=== PATIENT | male | born 2000 | race Caucasian/White ===

== ENCOUNTER 2019-05-03 21:05 | Emergency (ER) | payer SELFPAY ==
--- NOTE | 2019-05-03 21:38 | PHYS DOC ---
Adult General Chief Complaint Chief Complaint: SEXUALLY TRANSMITTED DISEASE HPI HPI Patient is a 19-year-old male who presents with report that he thinks that he has an STD. Patient states that his ex-girlfriend had cheated on him and 4 days ago he started noticing penile discharge. He does report to painful urination. He denies any fever or abdominal pain. He denies any testicular pain.[] Review of Systems Review of Systems Constitutional: Denies fever or chills [] Respiratory: Denies cough or shortness of breath [] Cardiovascular: No additional information not addressed in HPI [] GI: Denies abdominal pain, nausea, vomiting or diarrhea [] : Complains of dysuria and penile discharge[] Musculoskeletal: Denies back pain or joint pain [] Integument: Denies rash or skin lesions [] Physical Exam Physical Exam Constitutional: Well developed, well nourished, no acute distress, non-toxic appearance. [] Neck: Normal range of motion, no tenderness, supple, no stridor. [] Cardiovascular:Heart rate regular rhythm, no murmur [] Lungs & Thorax: Bilateral breath sounds clear to auscultation [] Abdomen: Bowel sounds normal, soft, no tenderness. [] : Examination of male genitalia demonstrates findings of purulent penile discharge. No testicular mass or tenderness. [] EKG EKG [] Radiology/Procedures Radiology/Procedures [] Course & Med Decision Making Course & Med Decision Making Pertinent Labs and Imaging studies reviewed. (See chart for details) An MSE was completed on this patient and registration presented to seek payment. Patient elected to leave with outpatient follow-up. Dragon Disclaimer Dragon Disclaimer This electronic medical record was generated, in whole or in part, using a voice recognition dictation system. Departure Departure Impression: Primary Impression: Sexually transmitted disease (STD) Disposition: 01 HOME, SELF-CARE (Patient left without treatment after discussion with registration) Condition: STABLE Referrals: NO PCP (PCP) Additional Instructions: Patient encouraged to follow-up with outpatient free clinic or health department for further treatment. LISANDRO VALLES Jr. DO May 03, 2019 21:38
== END 2019-05-03 21:35 | disposition home or self-care (01) ==
LOC: ER 21:05
DX: A64 Unspecified sexually transmitted disease (principal); R30.9 Painful micturition, unspecified
CPT/HCPCS: 99281

== ENCOUNTER 2019-05-13 18:01 | Emergency (ER) | payer SELFPAY ==
[~2019-05-13] VITALS: Ht 175.3 cm; Wt 61.2 kg
[2019-05-13 18:21] VITALS: BP 143/93
[2019-05-13 18:48] LABS: BILIRUBIN,URINE NEGATIVE (NEG); CLARITY,URINE CLOUDY; COLOR,URINE YELLOW; NITRITE,URINE NEGATIVE (NEG); PH,URINE 6.5; PROTEIN,URINE 30 mg/dL (NEG-TRACE)
--- NOTE | 2019-05-13 18:51 | PHYS DOC ---
Past Medical History Past Medical History: No Pertinent History (OPAL FRANCO APRN) Past Surgical History: Other Additional Past Surgical Histo: mouth sx from fall as a child (OPAL FRANCO APRN) Alcohol Use: Occasionally Drug Use: Marijuana (OPAL FRANCO APRN) Attending Signature I have participated in the care of this patient and I have reviewed and agree with all pertinent clinical information above including history, exam, and recommendations. (MALATHI GARDNER MD) Adult General Chief Complaint Chief Complaint: SEXUALLY TRANSMITTED DISEASE HPI HPI Patient is a 19 year old male who presents to the emergency Department with concerns of sexually transmitted infection. Patient reports pain with urination and abnormal white to yellow penile discharge for the last week. Patient denies any abdominal pain, nausea, vomiting, diarrhea, difficulty urinating, hematuria, low back pain, fever, shortness breath, wheezing, or rash. Patient states that he has had a dry for several weeks, he states those symptoms are improving. Patient reports he is a smoker and smokes about half a pack to a pack of cigarettes daily. He currently denies any pain unless he is urinating and it is a 10 out of 10 on the pain scale. All other ROS is neg unless otherwise noted in HPI. (OPAL FRANCO APRN) Review of Systems Review of Systems See Above (OPAL FRANCO APRN) Current Medications Current Medications Current Medications Medications (Trade) Dose Ordered Sig/Loki Start Time Stop Time Status Last Admin Dose Admin Azithromycin (Zithromax) 1,000 mg 1X ONCE 05/13/19 19:00 05/13/19 19:01 DC 05/13/19 18:48 1,000 MG Ceftriaxone Sodium (Rocephin Im) 250 mg 1X ONCE 05/13/19 19:00 05/13/19 19:01 DC 05/13/19 18:48 250 MG (MALATHI GARDNER MD) Allergies Allergies Allergies Coded Allergies Type Severity Reaction Last Updated Verified No Known Drug Allergies 05/13/19 No (MALATHI GARDNER MD) Physical Exam Physical Exam Constitutional: Well developed, well nourished, no acute distress, non-toxic appearance. [] HENT: Normocephalic, atraumatic, bilateral external ears normal, oropharynx moist, no oral exudates, nose normal. [] Eyes: PERRLA, EOMI, conjunctiva normal, no discharge. [] Neck: Normal range of motion, no stridor. [] Cardiovascular:Heart rate regular rhythm, no murmur [] Lungs & Thorax: Bilateral breath sounds clear to auscultation [] Abdomen: soft, no tenderness Skin: Warm, dry, no erythema, no rash. [] Back: No CVA tenderness. [] Extremities: No cyanosis, ROM intact Neurologic: Alert and oriented X 3, no focal deficits noted. [] Psychologic: Affect normal, judgement normal, mood normal. [] (OPAL FRANCO APRN) Current Patient Data Vital Signs Vital Signs Date Time Temp Pulse Resp B/P (MAP) Pulse Ox O2 Delivery O2 Flow Rate FiO2 05/13/19 18:21 98.4 118 16 143/93 (110) 100 Room Air 98.4 (MALATHI GARDNER MD) Lab Values Laboratory Tests Test 05/13/19 18:33 Urine Collection Type Unknown Urine Color Yellow Urine Clarity Cloudy Urine pH 6.5 Urine Specific [place] 1.020 Urine Protein 30 mg/dL (NEG-TRACE) Urine Glucose (UA) Negative mg/dL (NEG) Urine Ketones (Stick) Negative mg/dL (NEG) Urine Blood Moderate (NEG) Urine Nitrite Negative (NEG) Urine Bilirubin Negative (NEG) Urine Urobilinogen Dipstick 1.0 mg/dL (0.2 mg/dL) Urine Leukocyte Esterase Large (NEG) Urine RBC 0 /HPF (0-2) Urine WBC Tntc /HPF (0-4) Urine Bacteria 0 /HPF (0-FEW) Urine Mucus Mod /LPF Urine Sperm Present /HPF (MALATHI GARDNER MD) Lab Values Laboratory Tests Test 05/13/19 18:33 Urine Collection Type Unknown Urine Color Yellow Urine Clarity Cloudy Urine pH 6.5 Urine Specific [place] 1.020 Urine Protein 30 mg/dL (NEG-TRACE) Urine Glucose (UA) Negative mg/dL (NEG) Urine Ketones (Stick) Negative mg/dL (NEG) Urine Blood Moderate (NEG) Urine Nitrite Negative (NEG) Urine Bilirubin Negative (NEG) Urine Urobilinogen Dipstick 1.0 mg/dL (0.2 mg/dL) Urine Leukocyte Esterase Large (NEG) Urine RBC 0 /HPF (0-2) Urine WBC Tntc /HPF (0-4) Urine Bacteria 0 /HPF (0-FEW) Urine Mucus Mod /LPF Urine Sperm Present /HPF (OPAL FRANCO APRN) EKG EKG [] (OPAL FRANCO APRN) Radiology/Procedures Radiology/Procedures [] (OPAL FRANCO APRN) Course & Med Decision Making Course & Med Decision Making Pertinent Labs and Imaging studies reviewed. (See chart for details) Diagnosis contact with a suspected sexually transmitted infection Patient is a 19-year-old male who presented to the emergency room with complaints of abnormal penile discharge and dysuria for the last week. He reported concerns of a sexually transmitted infection. Patient was treated prophylactically with 250 mg of IM Rocephin, and 1 g of PO Zithromax. Patient was instructed to avoid having intercourse until the results of gonorrhea and chlamydia testing are available, patient was notified that these results would not be available for 48 hours. If one or both of these tests is positive, patient needs to refrain from intercourse for approximately 1 week following the treatment of any current partners. Patient verbalized an understanding of home care, medications, follow-up, and return to ED instructions and was in agreement with the plan of care. [] (OPAL FRANCO APRN) Dragon Disclaimer Dragon Disclaimer This electronic medical record was generated, in whole or in part, using a voice recognition dictation system. (OPAL FRANCO APRN) Departure Departure Impression: Primary Impression: Contact with and (suspected) exposure to infections with a predominantly sexual mode of transmission Additional Impressions: Dysuria Abnormal penile discharge Disposition: 01 HOME, SELF-CARE Condition: STABLE Referrals: NO PCP (PCP) Patient Instructions: Sexually Transmitted Disease, [id number] Additional Instructions: Recommend that you go to your local health department for comprehensive sexually transmitted disease testing. You have been treated for a suspected gonorrhea and chlamydia. Avoid having intercourse until the results of gonorrhea and chlamydia testing are available, these results will not be available for 48 hours. If one or both of these tests is positive, you need to refrain from intercourse for approximately 1 week following the treatment of any current partners. Follow-up with your primary care doctor if symptoms persist, return to ER symptoms worsen. Problem Qualifiers OPAL FRANCO APRN May 13, 2019 18:51 MALATHI GARDNER MD May 14, 2019 18:13
[2019-05-13] MEDS ORDERED: AZITHROMYCIN 250 MG TABLET. PO ONE (19:00)
[2019-05-13] MEDS ORDERED: cefTRIAXone IM 250 MG VIAL IM ONE (19:00)
[2019-05-13 19:03] LABS: BACTERIA,URINE 0 /HPF (0-FEW); RBC,URINE 0 /HPF (0-2); SPERM,URINE PRESENT /HPF; WBC,URINE TNTC /HPF (0-4)
== END 2019-05-13 19:26 | disposition home or self-care (01) ==
LOC: ER 18:01
DX: R30.0 Dysuria (principal); Z20.2 Contact with and (suspected) exposure to infections with a predominantly sexual mode of transmission; R36.9 Urethral discharge, unspecified; F17.210 Nicotine dependence, cigarettes, uncomplicated; F12.90 Cannabis use, unspecified, uncomplicated
CPT/HCPCS: 81001; 87086; 87491; 87591; 96372; 99284; J0696; Q0144

== ENCOUNTER 2020-03-12 20:38 | Emergency (ER) | payer SELFPAY ==
[~2020-03-12] VITALS: Ht 175.3 cm; Wt 61.0 kg
[2020-03-12 20:50] VITALS: BP 127/77
[2020-03-12] MEDS ORDERED: cefTRIAXone IM 250 MG VIAL IM ONE (21:15)
[2020-03-12] MEDS ORDERED: AZITHROMYCIN 250 MG TABLET. PO ONE (21:15)
--- NOTE | 2020-03-12 21:30 | PHYS DOC ---
Past Medical History Past Medical History: No Pertinent History Past Surgical History: Other Additional Past Surgical Histo: mouth sx from fall as a child Smoking Status: Current Every Day Smoker Alcohol Use: Occasionally Drug Use: Marijuana General Adult EDM: Chief Complaint: SEXUALLY TRANSMITTED DISEASE HPI: HPI: Patient is a 20 year old male who presents to the emergency department with complaints of irregular penile discharge and pain with urination for the last week. He reports that he thinks he might have a sexually transmitted infection. The patient denies any fever, abdominal pain, testicular pain, nausea, vomiting, diarrhea, or rash. He denies any hematuria, increased urinary frequency, or incontinence. He currently denies any pain. Review of Systems: Review of Systems: Complete ROS is negative unless otherwise stated in the HPI. Heart Score: Risk Factors: Risk Factors: DM, Current or recent (<one month) smoker, HTN, HLP, family history of CAD, obesity. Risk Scores: Score 0 - 3: 2.5% MACE over next 6 weeks - Discharge Home Score 4 - 6: 20.3% MACE over next 6 weeks - Admit for Clinical Observation Score 7 - 10: 72.7% MACE over next 6 weeks - Early Invasive Strategies Current Medications: Current Medications Medications (Trade) Dose Ordered Sig/Loki Start Time Stop Time Status Last Admin Dose Admin Azithromycin (Zithromax) 1,000 mg 1X ONCE 03/12/20 21:15 03/12/20 21:16 DC 03/12/20 21:25 1,000 MG Ceftriaxone Sodium (Rocephin Im) 250 mg 1X ONCE 03/12/20 21:15 03/12/20 21:16 DC 03/12/20 21:25 250 MG Allergies: Allergies: Allergies Coded Allergies Type Severity Reaction Last Updated Verified No Known Drug Allergies 05/13/19 No Physical Exam: PE: Constitutional: Well developed, well nourished, no acute distress, non-toxic appearance. [] HENT: Normocephalic, atraumatic, bilateral external ears normal, nose normal. [] Eyes: PERRLA, EOMI, conjunctiva normal, no discharge. [] Neck: Normal range of motion, no stridor. [] Cardiovascular:Heart rate regular rhythm Lungs & Thorax: Respirations even and unlabored, no retractions, no respiratory distress Skin: Warm, dry, no erythema, no rash. [] Extremities: No cyanosis, ROM intact, no edema. [] Neurologic: Alert and oriented X 3, no focal deficits noted. [] Psychologic: Affect normal, judgement normal, mood normal. [] Current Patient Data: Vital Signs: Vital Signs Date Time Temp Pulse Resp B/P (MAP) Pulse Ox O2 Delivery O2 Flow Rate FiO2 03/12/20 20:50 98.2 66 15 127/77 (94) 100 Room Air 98.2 EKG: EKG: [] Radiology/Procedures: Radiology/Procedures: [] Course & Med Decision Making: Course & Med Decision Making Pertinent Labs and Imaging studies reviewed. (See chart for details) Patient was treated prophylactically with 250 mg of IM Rocephin, and 1 g of PO Zithromax. Patient was instructed to avoid having intercourse until the results of gonorrhea and chlamydia testing are available, patient was notified that these results would not be available for 48 hours. If one or both of these tests is positive, patient needs to refrain from intercourse for approximately 1 week following the treatment of any current partners. [] Dragon Disclaimer: Dragon Disclaimer: This electronic medical record was generated, in whole or in part, using a voice recognition dictation system. Departure Departure Impression: Primary Impression: Contact with and (suspected) exposure to infections with a predominantly sexual mode of transmission Additional Impression: Abnormal penile discharge Disposition: 01 HOME, SELF-CARE Condition: STABLE Referrals: NO PCP (PCP) Patient Instructions: Sexually Transmitted Disease, [id number] Additional Instructions: Fill the prescription and use as directed. Recommend that you go to your local health department for comprehensive sexually transmitted disease testing. You have been treated for a suspected gonorrhea and chlamydia. Avoid having intercourse until the results of gonorrhea and chlamydia testing are available, these results will not be available for 48 hours. If one or both of these tests is positive, you need to refrain from intercourse for approximately 1 week following the treatment of any current partners. Follow-up with your primary care doctor if symptoms persist, return to ER symptoms worsen. Justicifation of Admission Dx: Justifications for Admission: Justification of Admission Dx: OPAL Hernandez APRN Mar 12, 2020 21:30
== END 2020-03-12 21:40 | disposition home or self-care (01) ==
LOC: ER 20:38
DX: R36.9 Urethral discharge, unspecified (principal); F17.200 Nicotine dependence, unspecified, uncomplicated; F12.90 Cannabis use, unspecified, uncomplicated; Z98.890 Other specified postprocedural states; Z20.2 Contact with and (suspected) exposure to infections with a predominantly sexual mode of transmission
CPT/HCPCS: 87491; 87591; 96372; 99283; J0696

== ENCOUNTER 2020-08-13 03:41 | Emergency (ER) | payer SELFPAY ==
[~2020-08-13] VITALS: Ht 175.3 cm; Wt 64.2 kg
[2020-08-13] MEDS ORDERED: fentaNYL PF VIAL 100 MCG/2 ML VIAL IV ONE ×2 (04:15→05:00)
--- NOTE | 2020-08-13 04:37 | RAD ---
Two-view right shoulder radiographs 08/13/2020 CLINICAL HISTORY: Right shoulder injury. AP and transscapular digital radiographs of the right shoulder were obtained. No fracture or dislocat ion of the right shoulder is seen. No significant degenerative changes are noted. IMPRESSION: No fracture or dislocation of the right shoulder is seen. Electronically signed by: Trevor Almaguer MD (08/13/2020 4:35 AM) [id number]
--- NOTE | 2020-08-13 04:39 | RAD ---
Two-view left shoulder radiographs 08/13/2020 CLINICAL HISTORY: Left shoulder injury. Deformity. AP internal and external rotation digital radiographs of the left shoulder were obtained. The humeral head is dislocated anteriorly and medially relative to the glenoid. No fracture is seen. IMPRESSION: Anterior dislocation of the left shoulder. Electronically signed by: Trevor Almaguer MD (08/13/2020 4:37 AM) [id number]
[2020-08-13] MEDS ORDERED: ORPHENADRINE CITRATE 60 MG/2 ML VIAL. IV ONE (04:45)
[2020-08-13] MEDS ORDERED: MORPHINE SULFATE 4 MG/ML VIAL. IV ONE (04:45)
[2020-08-13] MEDS ORDERED: IV NORMAL SALINE 1000ML BAG 1,000 ML IV ONE (05:00)
[2020-08-13] MEDS ORDERED: ETOMIDATE 20 MG/10 ML VIAL. IV ONE (05:00)
[2020-08-13 05:23] VITALS: BP 169/94
[2020-08-13] MEDS ORDERED: HYDR-2761 PO (05:43)
--- NOTE | 2020-08-13 05:43 | PHYS DOC ---
Past Medical History Past Medical History: No Pertinent History Past Surgical History: Other Additional Past Surgical Histo: mouth sx from fall as a child Smoking Status: Current Every Day Smoker Alcohol Use: Occasionally Drug Use: Marijuana General Adult EDM: Chief Complaint: UPPER EXTREMITY INJURY HPI: HPI: Patient is a 20 year old [f__sex] who presents with [] Review of Systems: Review of Systems: Constitutional: Denies fever or chills. [] Eyes: Denies change in visual acuity. [] HENT: Denies nasal congestion or sore throat. [] Respiratory: Denies cough or shortness of breath. [] Cardiovascular: Denies chest pain or edema. [] GI: Denies abdominal pain, nausea, vomiting, bloody stools or diarrhea. [] : Denies dysuria. [] Musculoskeletal: Denies back pain or joint pain. [] Integument: Denies rash. [] Neurologic: Denies headache, focal weakness or sensory changes. [] Endocrine: Denies polyuria or polydipsia. [] Lymphatic: Denies swollen glands. [] Psychiatric: Denies depression or anxiety. [] Heart Score: Risk Factors: Risk Factors: DM, Current or recent (<one month) smoker, HTN, HLP, family history of CAD, obesity. Risk Scores: Score 0 - 3: 2.5% MACE over next 6 weeks - Discharge Home Score 4 - 6: 20.3% MACE over next 6 weeks - Admit for Clinical Observation Score 7 - 10: 72.7% MACE over next 6 weeks - Early Invasive Strategies Current Medications: Current Medications Medications (Trade) Dose Ordered Sig/[facility] Start Time Stop Time Status Last Admin Dose Admin Etomidate (Amidate) 10 mg 1X ONCE 08/13/20 05:00 08/13/20 05:01 DC 08/13/20 05:24 10 MG Fentanyl Citrate (Fentanyl 2ml Vial) 50 mcg 1X ONCE 08/13/20 05:00 08/13/20 05:01 DC 08/13/20 05:25 50 MCG Morphine Sulfate (Morphine Sulfate) 4 mg 1X ONCE 08/13/20 04:45 08/13/20 04:46 DC 08/13/20 04:46 4 MG Orphenadrine Citrate (Norflex) 60 mg 1X ONCE 08/13/20 04:45 08/13/20 04:46 DC 08/13/20 04:46 60 MG Sodium Chloride 1,000 ml @ 1,000 mls/hr 1X ONCE 08/13/20 05:00 08/13/20 05:59 08/13/20 05:05 1,000 MLS/HR Allergies: Allergies: Allergies Coded Allergies Type Severity Reaction Last Updated Verified No Known Drug Allergies 05/13/19 No Physical Exam: PE: Constitutional: Well developed, well nourished, no acute distress, non-toxic appearance. [] HENT: Normocephalic, atraumatic, bilateral external ears normal, oropharynx moist, no oral exudates, nose normal. [] Eyes: PERRLA, EOMI, conjunctiva normal, no discharge. [] Neck: Normal range of motion, no tenderness, supple, no stridor. [] Cardiovascular:Heart rate regular rhythm, no murmur [] Lungs & Thorax: Bilateral breath sounds clear to auscultation [] Abdomen: Bowel sounds normal, soft, no tenderness, no masses, no pulsatile masses. [] Skin: Warm, dry, no erythema, no rash. [] Back: No tenderness, no CVA tenderness. [] Extremities: No tenderness, no cyanosis, no clubbing, ROM intact, no edema. [] Neurologic: Alert and oriented X 3, normal motor function, normal sensory func tion, no focal deficits noted. [] Psychologic: Affect normal, judgement normal, mood normal. [] Current Patient Data: Vital Signs: Vital Signs Date Time Temp Pulse Resp B/P (MAP) Pulse Ox O2 Delivery O2 Flow Rate FiO2 08/13/20 05:25 100 08/13/20 04:46 16 Room Air 08/13/20 03:46 97.3 67 153/98 (116) 97.3 EKG: EKG: [] Radiology/Procedures: Radiology/Procedures: [] Course & Med Decision Making: Course & Med Decision Making Pertinent Labs and Imaging studies reviewed. (See chart for details) [] Dragon Disclaimer: Dragon Disclaimer: This electronic medical record was generated, in whole or in part, using a voice recognition dictation system. Departure Departure Impression: Primary Impression: Anterior shoulder dislocation Qualified Codes: S43.015A - Anterior dislocation of left humerus, initial encounter Disposition: DC HOME SELF CARE/HOMELESS Condition: STABLE Referrals: NO PCP (PCP) BILL TILLEY MD Patient Instructions: Sedation, Moderate, Adult, Shoulder Dislocation, Easy-to- Read Additional Instructions: Use over the counter Ibuprofen for pain between doses of prescribed pain m edication or over the counter Tylenol. Scripts Hydrocodone Bit/Acetaminophen (HYDROCODONE-APAP 5-325 ) 1 Tab Tablet 0.5-1 TAB PO PRN Q6HRS PRN for PAIN, #10 TAB 0 Refills Prov: ROMAN HILLMAN DO 08/13/20 ROMAN HILLMAN DO Aug 13, 2020 05:43
--- NOTE | 2020-08-13 05:47 | RAD ---
AP radiograph of the left shoulder 08/13/2020 CLINICAL HISTORY: Post reduction of an anterior dislocation left shoulder. Portable AP digital radiograph of the left shoulder was obtained. Comparison study is dated earlier t he same day at 0419 hours. The humeral head now articulates normally with the glenoid. No fracture is seen. IMPRESSION: Postreduction radiograph of the left shoulder as discussed above. Electronically signed by: Trevor Almaguer MD (08/13/2020 5:45 AM) [id number]
== END 2020-08-13 06:06 | disposition home or self-care (01) ==
LOC: ER 03:41
DX: S43.015A Anterior dislocation of left humerus, initial encounter (principal); F17.200 Nicotine dependence, unspecified, uncomplicated; Y04.0XXA Assault by unarmed brawl or fight, initial encounter; Y93.89 Activity, other specified; Y92.89 Other specified places as the place of occurrence of the external cause; Y99.8 Other external cause status
CPT/HCPCS: 23650; 73020; 73030; 96361; 96374; 96375; 99285; J2270; J2360; J3010; J3490; J7030